=== PATIENT | female | born 1980 | race Caucasian/White ===

== ENCOUNTER → 2021-01-25 08:16 | Outpatient (CLI) | payer SELFPAY ==
[2016-12-27 14:49] VITALS: BMI 25.4
== END ==
PROVIDERS: Referring Provider Nurse Practitioner Women's Health; Visit Provider Nurse Practitioner Women's Health
DX: N91.2 Amenorrhea, unspecified (principal)
CPT/HCPCS: 36415; 84702

== ENCOUNTER → 2021-02-27 | Outpatient (CLI) | payer SELFPAY ==
[2021-03-05 19:29] LABS: HPV APTIMA, High Risk Negative (Negative)
== END | disposition home or self-care (01) ==
LOC: LABSPEC 17:02
PROVIDERS: Referring Provider Obstetrics & Gynecology; Visit Provider Obstetrics & Gynecology
DX: Z34.90 Encounter for supervision of normal pregnancy, unspecified, unspecified trimester (principal)
CPT/HCPCS: 87086; 87088; 87624; 88175; G0145

== ENCOUNTER → 2021-03-19 10:04 | Outpatient (CLI) | payer SELFPAY ==
[2021-03-19 10:51] LABS: Absolute Lymphocyte Count 1.41 X10^3/uL (0.83-4.51); Absolute Neutrophil Count 5.5 X10^3/uL (2.0-7.7); Basophil# 0.02 X10^3/uL; Basophil% 0.3 % (0-1); Eosinophil# 0.02 X10^3/uL; Eosinophils% 0.3 % (0-5); Hematocrit 32.6 % (37-47); Hemoglobin 10.8 g/dL (12.0-15.0); Lymphocyte # 1.41 X10^3/ul (0.83-4.51); Lymphocyte % 19.5 % (19-41); Mean Corp Hgb Conc 33.1 g/dL (32-36); Mean Corpuscular Hgb 31.6 pg (27.0-32.0); Mean Corpuscular Volume 95.3 fL (81-99); Mean Platelet Vol. 9.5 fl (6.2-12.0); Monocyte# 0.31 X10^3/uL; Monocyte% 4.3 % (0-10); NRBC Flagged by Analyzer 0 % (0-5); Neutrophil # 5.45 X10^3/uL (2.7-7.7); Neutrophil % 75.3 % (47-70); Platelet Count 461 K/mm3 (150-450); RBC Distribution Width SD 44.4 fl (35.1-43.9); Red Blood Count 3.42 M/mm3 (4.2-5.4); White Blood Count 7.2 K/mm3 (4.4-11.0)
[2021-03-19 11:06] LABS: Hemoglobin A1c 5.5 % (3.8-5.6)
[2021-03-19 11:28] LABS: Rubella IgG Reactive (Nonreactive)
== END ==
PROVIDERS: Referring Provider Obstetrics & Gynecology; Visit Provider Obstetrics & Gynecology
DX: O09.299 Supervision of pregnancy with other poor reproductive or obstetric history, unspecified trimester (principal); Z86.32 Personal history of gestational diabetes
CPT/HCPCS: 36415; 83036; 85025; 86762; 86850; 86900; 86901

== ENCOUNTER → 2021-04-28 08:58 | Outpatient (CLI) | payer SELFPAY ==
--- NOTE | 2021-04-28 09:01 | US_ITS ---
STUDY: SECOND AND THIRD TRIMESTER OBSTETRICAL ULTRASOUND REASON FOR EXAM: Female, 40 years old LMP: 12/09/2020. TECHNIQUE: Transabdominal and Transvaginal TECHNICAL QUALITY: Adequate. PRIOR ULTRASOUND: None. FINDINGS: There is a single intrauterine fetus. The fetus is in a cephalic presentation. There is demonstrated cardiac activity with a heart rate of 145 bpm. There is a normal amniotic fluid volume. The largest amniotic fluid pocket measures 4.9 cm x 3.6 cm. The amniotic fluid index (NUSRAT) is within normal limits. The placenta is anterior in location and is not low lying. There are Grade 1 placental changes. The cervix measures 3.6 cm in length. The bilateral adnexal regions are normal. BIOMETRY: BPD: 4.58 cm: 19 weeks, 5 days HC: 17.29 cm: 19 weeks, 5 days AC: 14.63 cm: 19 weeks, 6 days FL: 3.03 cm: 9 weeks, 2 days CI: 78% FL/BPD: 66% FL/HC: FL/AC: 21% HC/AC: 1.18 age by current US: 19 weeks, 4 days. MARU by current US: 09/18/2021. Estimated weight: 308 grams, +/- 46 grams, 30 %. Age by LMP: 20 weeks, 0 days. MARU by LMP: 09/15/2021. ANATOMY: Gender: Female Cranium: Normal lateral ventricles. Normal choroid plexus. Normal cerebellum. Normal cisterna magna. Normal face, nose and lips. Chest: Normal 4-chamber heart. Abdomen/Pelvis: Normal diaphragm. Normal stomach. Normal abdominal wall. Cord insertion is at 1.7 cm from the superior edge of the placenta. Normal 3 vessel cord. Normal kidneys. Normal bladder. Spine: Normal cervical spine. Normal thoracic spine. Normal lumbar spine. Normal sacrum. Extremities: Normal bilateral upper extremities. Normal bilateral lower extremities. IMPRESSION: Single live intrauterine gestation with a mean gestational age of 19 weeks and 4 days. The placental cord insertion is at 1.7 cm from the superior edge of the placenta. Electronically Signed: Tanvir Ryder MD at 12:55 EST , Service support , STUDY: FIRST TRIMESTER OBSTETRICAL ULTRASOUND REASON FOR EXAM: Female, 40 years old. Placental localization. LMP: 12/09/2020. TECHNIQUE: Transvaginal TECHNICAL QUALITY: Adequate. PRIOR ULTRASOUND: None. FINDINGS: The placenta lies along the anterior wall of the uterus. The placenta is not low-lying. US/OB Anatomy Scan IMPRESSION: The placenta and lies along the anterior aspect of the uterus. No low-lying placenta is seen. Electronically Signed: Tanvir Ryder MD at 12:56 EST , Service support ,
== END ==
PROVIDERS: Referring Provider Obstetrics & Gynecology; Visit Provider Obstetrics & Gynecology
DX: O09.92 Supervision of high risk pregnancy, unspecified, second trimester (principal); Z3A.19 19 weeks gestation of pregnancy
CPT/HCPCS: 76805; 76817

== ENCOUNTER 2021-07-18 09:55 | Outpatient (CLI) | payer MEDICAID, SELFPAY ==
[2021-07-18 10:14] LABS: Absolute Lymphocyte Count 1.19 X10^3/uL (0.83-4.51); Absolute Neutrophil Count 5.4 X10^3/uL (2.0-7.7); Basophil# 0.03 X10^3/uL; Basophil% 0.4 % (0-1); Eosinophil# 0.04 X10^3/uL; Eosinophils% 0.6 % (0-5); Hematocrit 31.5 % (37-47); Hemoglobin 10.3 g/dL (12.0-15.0); Lymphocyte # 1.19 X10^3/ul (0.83-4.51); Lymphocyte % 16.8 % (19-41); Mean Corp Hgb Conc 32.7 g/dL (32-36); Mean Corpuscular Hgb 30.8 pg (27.0-32.0); Mean Corpuscular Volume 94.3 fL (81-99); Mean Platelet Vol. 9.7 fl (6.2-12.0); Monocyte# 0.38 X10^3/uL; Monocyte% 5.4 % (0-10); NRBC Flagged by Analyzer 0 % (0-5); Neutrophil # 5.39 X10^3/uL (2.7-7.7); Neutrophil % 76.2 % (47-70); Platelet Count 465 K/mm3 (150-450); RBC Distribution Width CV 13.2 % (11.6-14.6); RBC Distribution Width SD 45.4 fl (35.1-43.9); Red Blood Count 3.34 M/mm3 (4.2-5.4); White Blood Count 7.1 K/mm3 (4.4-11.0)
== END 2021-07-18 23:59 | disposition short-term general hospital (02) ==
PROVIDERS: Referring Provider Obstetrics & Gynecology; Visit Provider Obstetrics & Gynecology
DX: O99.019 Anemia complicating pregnancy, unspecified trimester (principal); D64.9 Anemia, unspecified; Z3A.00 Weeks of gestation of pregnancy not specified
CPT/HCPCS: 36415; 85025

== ENCOUNTER 2021-08-22 08:16 | Outpatient (CLI) | payer MEDICAID, SELFPAY | END 2021-08-22 23:59 | disposition home or self-care (01) | LOC: LABSPEC 08-25 08:17 | PROVIDERS: Referring Provider Obstetrics & Gynecology; Visit Provider Obstetrics & Gynecology | DX: Z34.82 Encounter for supervision of other normal pregnancy, second trimester (principal); Z3A.33 33 weeks gestation of pregnancy | CPT/HCPCS: 87081 ==

== ENCOUNTER 2021-09-09 01:12 | Inpatient (IN) | payer MEDICAID, SELFPAY ==
[2021-09-09] VITALS (45 sets, daily range): BP systolic 100–151; BP diastolic 55–85; PULSE 76–245; RESP 14–18; TEMP 36.1–36.9; O2SAT 82–100; BMI 28.1
[2021-09-09] MEDS: Lactated Ringers 1,000 ML 999 ML IV ×2 (01:35→06:34)
[2021-09-09 02:10] LABS: Absolute Lymphocyte Count 1.01 X10^3/uL (0.83-4.51); Absolute Neutrophil Count 6.4 X10^3/uL (2.0-7.7); Basophil# 0.02 X10^3/uL; Basophil% 0.3 % (0-1); Eosinophil# 0.01 X10^3/uL; Eosinophils% 0.1 % (0-5); Hematocrit 30.4 % (37-47); Hemoglobin 10.1 g/dL (12.0-15.0); Lymphocyte # 1.01 X10^3/ul (0.83-4.51); Lymphocyte % 12.7 % (19-41); Mean Corp Hgb Conc 33.2 g/dL (32-36); Mean Corpuscular Hgb 31.6 pg (27.0-32.0); Mean Platelet Vol. 11.4 fl (6.2-12.0); Monocyte# 0.45 X10^3/uL; Monocyte% 5.6 % (0-10); NRBC Flagged by Analyzer 0 % (0-5); Neutrophil # 6.43 X10^3/uL (2.7-7.7); Neutrophil % 80.5 % (47-70); Platelet Count 428 K/mm3 (150-450); RBC Distribution Width CV 13.3 % (11.6-14.6); RBC Distribution Width SD 46.1 fl (35.1-43.9)
[2021-09-09] MEDS: Sodium Citrate/Citric Acid 30 ML UDC PO (02:10)
--- NOTE | 2021-09-09 03:30 | HP.PCM.OB_ITS ---
HPI - General General Date of Admission: 09/09/21 HPI Narrative ABDULKADIR HERNANDEZ, is a 41 F who presents IAL and SROM thick meconium wanting to proceed with RLTCS. Maternal Data Information MARU Calculator Estimated Delivery Date Method Current WG Current Estimate 09/15/21 LMP (Uncertain) 39w 1d [facility] Medical History (Updated 09/09/21 @ 03:[address] 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 Date Name GA/Weeks Outcome Route Bth Weight Infant Gen Labor Lgth Anesthesia Del Locatn Provider FOB 01/28/14 Ajith 39 live - full term 6lbs 8oz Male epidural [facility] [place] Marcel 12/27/16 Jerad 39 live - full term 7lbs Male e pidural [facility] Dr. Becky Rod Delivery Date: 01/28/14 CPD- baby was posterior; GDM Savanna Smith Delivery Date: 12/27/16 attempted home with Theresa Mars; FTD; gestational hypertension; acute hemorrhagic anemia with blood transfusion Savanna Smith Visit Details Expected Delivery Route/Plan RLTCS Labor Preferences- labor support person: Marcel labor intervention preferences: [] pain management options preferred: epidural if needed and able to cut cord/dad catch: [] : yes PP control planned: discussed discussed possible routes of delivery and associated risks: [] special requests: [] Plans Covid status: non immune, counseled regarding risk of covid in vs vaccination and declined vaccination Flu vaccine: declines Tdap vaccine: declines Rhogam: na LARC form signed: yes movement and labor precautions reviewed. Problem list reviewed and updated with the most current plan of care details and appropriate orders placed. Relevant counseling for the gestational age provided. Continue routine care and follow up unless otherwise noted in visit notes/problem list details OB Flowsheet Initial Weight: 140 lb Date -?-?-?-?-?-?-?-?-?-?-?-?- EGA Weight BP Urine Prot -?-?-?-?-?-?-?-?-?-?-?-?- Glucose FHR FuHt Pres Dilation -?-?-?-?-?-?-?-?-?-?-?-?- Effaced St Visit Note 02/27/21 -?-?-?-?-?-?-?-?-?-?-?-?- 11w 3d 140 lb (+0 oz) 130/92 -?-?-?-?-?-?-?-?-?-?-?-?- 170 -?-?-?-?-?-?-?-?-?-?-?-?- SM- CRL cons wit h LMP SM- CRL unable to be fully m easured- will need repeat US for dating plan fu visit 03/19/21 -?-?-?-?-?-?-?-?-?-?-?-?- 14w 2d 138 lb 2 oz (-1 lb 14 oz) 138/86 Negative -?-?-?-?-?-?-?-?-?-?-?-?- Negative 145 -?-?-?-?-?-?-?-?-?-?-?-?- SM- no vb arjun sanchez, will get SP limited labs done today, declines testing now but agrees to be done at delivery. 04/14/21 -?-?-?-?-?-?-?-?-?-?-?-?- 18w 0d 138 lb (-2 lb) 130/82 Negative -?-?-?-?-?-?-?-?-?-?-?-?- Negative -?-?-?-?-?-?-?-?-?-?-?-?- SM- labs reviewe d, feeling good. no vb cramping 05/12/21 -?-?-?-?-?-?-?-?-?-?-?-?- 22w 0d 141 lb 2 oz (+1 lb 2 oz) 130/88 Negative -?-?-?-?-?-?-?-?-?-?-?-?- Negative 147 -?-?-?-?-?-?-?-?-?-?-?-?- JV- no lof, vagi nal bleeding, or cramping. cord insertion 1.7cm from edge of placenta. (anterior) less than 10% chance of success for . pt wants to do glucose monitoring over the GCT. test strips given. 06/10/21 -?-?-?-?-?-?-?-?-?-?-?-?- 26w 1d 140 lb (+0 oz) 126/72 Negative -?-?-?-?-?-?-?-?-?-?-?-?- Negative 141 26 -?-?-?-?-?-?-?-?-?-?-?-?- MH- No VB, lof. Good FM. Will check BS qid X 1 week and report. CBC today. Larc. Declines TDAP 07/18/21 -?-?-?-?-?-?-?-?-?-?-?-?- 31w 4d 146 lb 6 oz (+6 lb 6 oz) 120/88 Negative -?-?-?-?-?-?-?-?-?-?-?-?- Negative 145 31 -?-?-?-?-?-?-?-?-?-?-?-?- JV- no lof, vagi nal bleeding, or dec fm. fasting and 2 hr pp levels were done and she had 2 abnormal levels. continue checking fasting levels. plan for 39 week rpt section 08/01/21 -?-?-?-?-?-?-?-?-?-?-?-?- 33w 4d 147 lb (+7 lb) 110/80 Negative -?-?-?-?-?-?-?-?-?-?-?-?- Negative 145 33 -?-?-?-?-?-?-?-?-?-?-?-?- SM- no vb lof go od fm no regualr ctx 08/22/21 -?-?-?-?-?-?-?-?-?-?-?-?- 36w 4d 147 lb 4 oz (+7 lb 4 oz) 134/82 Negative -?-?-?-?-?-?-?-?-?-?-?-?- Negative 144 35 -?-?-?-?-?-?-?-?-?-?-?-?- JV- gbs collecte d, declined vag exam. no lof, vaginal bleeding, or dec m 08/29/21 -?-?-?-?-?-?-?-?-?-?-?-?- 37w 4d 148 lb (+8 lb) 132/86 Negative -?-?-?-?-?-?-?-?-?-?-?-?- Negative 145 37 -?-?-?-?-?-?-?-?-?-?-?-?- Sm- no vb lof go od fm no regular ctx 09/05/21 -?-?-?-?-?-?-?-?-?-?-?-?- 38w 4d 148 lb (+8 lb) 110/70 Negative -?-?-?-?-?-?-?-?-?-?-?-?- Negative 140 37 -?-?-?-?-?-?-?-?-?-?-?-?- SM- no vb lof go od fm no regular ctx 09/09/21 -?-?-?-?-?-?-?-?-?-?-?-?- 39w 1d 144 lb (+4 lb) 151/84 141/85 141/85 -?-?-?-?-?-?-?-?-?-?-?-?- -?-?-?-?-?-?-?-?-?-?-?-?- NST FHR Rate Baby A Baseline: 140 Variability:: Moderate Accelerations:: 15 x 15 Decelerations:: None NST Reactive:: Yes FHR Category:: Category I Uterine Activity:: q3-5 ROS Constitutional Constitutional: Reports systems reviewed and no addt'l complaints, except as documented ENT HEENT: Reports systems reviewed and no addt'l complaints, except as documented Cardiovascular Cardiovascular: Reports systems reviewed and no addt'l complaints, except as documented Respiratory/Chest Respiratory/Chest: Reports systems reviewed and no addt'l complaints, except as documented Gastrointestinal Gastrointestinal: Reports systems reviewed and no addt'l complaints, except as documented and nausea; Denies abdominal pain Genitourinary Genitourinary: Reports systems reviewed and no addt'l complaints, except as documented, contractions Details: present and frequency (regular ) and movement Details: present Musculoskeletal Musculoskeletal: Reports systems reviewed and no addt'l complaints, except as documented Integumentary Integumentary: Reports as per HPI Neurologic Neurologic: Reports systems reviewed and no addt'l complaints, except as documented Endocrine Endocrinology: Reports systems reviewed and no addt'l complaints, except as documented Vital Signs Vital Signs Vital Signs: 09/09/21 01:03 09/09/21 01:07 09/09/21 01:13 Temperature Temperature Source Pulse Rate 89 90 89 Respiratory Rate Blood Pressure 151/84 H Blood Pressure Mean BP Systolic 151 BP Diastolic 84 Blood Pressure Source Blood Pressure Position Blood Pressure Location Pulse Ox 97 97 Oxygen Delivery Method 09/09/21 01:19 09/09/21 01:24 09/09/21 01:29 Temperature Temperature Source Pulse Rate 102 H 80 99 Respiratory Rate Blood Pressure Blood Pressure Mean BP Systolic BP Diastolic Blood Pressure Source Blood Pressure Position Blood Pressure Location Pulse Ox 97 99 100 Oxygen Delivery Method 09/09/21 01:34 09/09/21 01:39 09/09/21 01:41 Temperature 98.5 F Temperature Source Temporal Pulse Rate 100 88 84 Respiratory Rate 18 Blood Pressure 141/85 H Blood Pressure Mean 103 BP Systolic BP Diastolic Blood Pressure Source Monitor Blood Pressure Position Supine Blood Pressure Location Left Arm Pulse Ox 99 100 99 Oxygen Delivery Method Room Air 09/09/21 01:43 09/09/21 01:44 Temperature Temperature Source Pulse Rate 95 90 Respiratory Rate Blood Pressure 141/85 H Blood Pressure Mean BP Systolic 141 BP Diastolic 85 Blood Pressure Source Blood Pressure Position Blood Pressure Location Pulse Ox 97 Oxygen Delivery Method Weight Weight: 144 lb Body Mass Index (BMI) 28.1 Physical Exam Const alert, oriented x3 and healthy appearing Constitutional Narrative: uncomfortable with contractions HEENT normocephalic and moist oral mucous membranes Head and Scalp: atraumatic Neck full ROM, no lymphadenopathy, supple and thyroid normal General: trachea midline Thyroid: thyroid normal Lymph Lymphatic: no lymphadenopathy noted Chest inspection of chest normal Resp normal respiratory effort Cardio regular rate GI normal to inspection, nondistended, normoactive bowel sounds, soft to palpation and non-tender Inspection: gravid external exam normal Bimanual Exam - Vag & Uterus: uterus non-tender Manual OB Exam: estimated gestational size appropriate, presentation cephalic, dilated, effaced and station Extremity normal to inspection General Extremity: Negative for edema Skin no rashes or lesions noted Neuro deep tendon reflexes 2+ bilaterally Motor Exam: strength 5/5 throughout and clonus absent Psych mental status grossly normal Labs Labs Labs: Blood Type O POSITIVE Antibody Screen NEGATIVE Hct 30.4 % (37-47) L Hgb 10.1 g/dL (12.0-15.0) L Pap Smear Negative Obstetrics US Syphilis Total Ab Pending Rubella IgG Antibody Reactive (Nonreactive) Hep Bs Antigen Negative (Negative) HIV 1&2 Antibody Pending Group B Strep DNA Negative (Negative) Rhogam given: No Assessment & Plan (1) Cleft palate: COMMENT: surgical corrected as a child (2) H/O section: COMMENT: RLTCS scheduled with 09/09/21 @ 12. 2 previous csections for CPD, discussed less than 10% chance of success, high morbidity if failed TOLAC, recommend RLTCS (3) AMA (advanced maternal age) multigravida 35+: COMMENT: discussed genetic screening options, plan growth US 36 weeks (4) Anemia affecting : COMMENT: iron added (5) Supervision of high risk , antepartum: COMMENT: PRR (SP) MARU:09/15/21 surprise PC: Jerad Canseco Spouse: Marcel (6) H/O depression, currently : COMMENT: states that she had her placenta encapsulated and that helped with her depression- she may do that again. Stable (7) : QUALIFIERS: Weeks of gestation: 38 weeks Qualified Code(s): Z3A.38 - 38 weeks gestation of COMMENT: declines genetic, carrier and NTD; PT declined std and tox screen labs, agrees to have done at delivery. GBS neg (8) H/O gestational diabetes in prior , currently : COMMENT: 2013- patient declines glucose, has been checking blood sugars f or a month and almost all WNL. discussed periodic checking. (9) Active labor at term: COMMENT: proceed with RLTCS
--- NOTE | 2021-09-09 03:36 | OP.PCM_ITS ---
Assessment & Plan (1) Active labor at term: COMMENT: proceed with RLTCS (2) H/O gestational diabetes in prior , currently : COMMENT: 2013- patient declines glucose, has been checking blood sugars for a month and almost all WNL. discussed periodic checking. (3) : QUALIFIERS: Weeks of gestation: 38 weeks Qualified Code(s): Z3A.38 - 38 weeks gestation of COMMENT: declines genetic, carrier and NTD; PT declined std and tox screen labs, agrees to have done at delivery. GBS neg (4) H/O depression, currently : COMMENT: states that she had her placenta encapsulated and that helped with her depression- she may do that again. Stable (5) Supervision of high risk , antepartum: COMMENT: PRR (SP) MARU:09/15/21 surprise PC: Jerad Canseco Spouse: Marcel (6) Anemia affecting : COMMENT: iron added (7) AMA (advanced maternal age) multigravida 35+: COMMENT: discussed genetic screening options, plan growth US 36 weeks (8) H/O section: COMMENT: RLTCS scheduled with 09/09/21 @ 12. 2 previous csections for CPD, discussed less than 10% chance of success, high morbidity if failed TOLAC, recommend RLTCS (9) Cleft palate: COMMENT: surgical corrected as a child (10) delivery delivered: COMMENT: 39 RLTCS girl thin lower uterine segment IAL mec Maternal Data Information MARU Calculator Estimated Delivery Date Method Current WG Current Estimate 09/15/21 LMP (Uncertain) 39w 1d Final MARU Source: LMP Gestational age: 39 Details Operative Information Date of Procedure: 09/09/21 Pre-Operative Diagnosis: ial previous cs x 2 h/o CPD Post-Operative Diagnosis: same Indications for : Suspected cephalopelvic disproportion Classification: CÉSAR Procedure Type: low transverse construction scheduler #1: Cary Carreon Type of Anesthesia: Spinal Special Medications: valentín Antibiotic Given: Ancef 2 grams IV x1 and Zithromax 500 mg/5 mL X1 Drain: Guido to straight drain Estimated Blood Loss: 800 Fluids Replaced: crystalloid Findings Description of Procedure: The patient was placed in the dorsal supine position with leftward tilt. Patient was prepped and draped in the normal sterile fashion. Pfannenstiel skin incision was made with the scalpel and carried through to the underlying layer of fascia with the scalpel. Fascia was nicked in the midline and the incision extended laterally. The rectus bellies were dissected off superiorly and inferiorly with out complication both sharply and bluntly. The peritoneum was entered digitally. The incision was stretched and the uterus visualized and the lower uterine segment noted to be very thin but intact. A low transverse uterine incision was made with the scalpel. The infant's head was delivered atraumatically followed by the anterior and posterior shoulders without complication the rest of the delivered. The cord was clamped and cut and the infant was handed off to awaiting nurse. The placenta was delivered spontaneously immediately following and was noted to be intact and have a three- vessel cord. The uterus was exteriorized cleared of all clots and debris, and the incision was closed in a double layer closure using #1 Monocryl. There is an extension cervically down the midline and to the left lower uterine segment which was reinforced with 2-0 Vicryl. The ureter was traced down along the left pelvic sidewall and noted to be inferior lateral to where the stitches were placed. The ovaries and fallopian tubes were noted to be within normal limits. The uterus was returned to the maternal abdomen and gutters were cleared of all clots and debris. The peritoneum was closed with 3-0 Monocryl in a running fashion. Gloves were changed prior to fascial closure. Fascia was closed with 0 PDS in a running fashion. Subcutaneous tissue was copiously irrigated and the skin was closed with 3-0 Monocryl in a subcuticular fashion. Mepilex dressing was applied without complication. Patient was taken to recovery in stable condition. It was discussed with the patient that based on the clinical information obtained during this encounter, combined with her history, at this time I would recommend cesareans for future deliveries if further pregnancies are desired. Amniotic Membrane Rupture Type: Spontaneous Amniotic Fluid Description: Thick meconium Placental Delivery Description: Spontaneous Placenta Disposition: [facility] Cord Vessel Description: 3 Vessels Cord Entanglement: None Delayed Cord Clamping: Yes Complications Risks of Surgery Discussed w/Patient: Bleeding, Infection, Need for Future C- Sections and Injury to surrounding structure(s) including bowel and bladder Complications: none Admit VTE Documentation VTE Present on Admission: No VTE Mechan Device Prophylaxis: SCD's Procedures Urinary/Genital [id number]: [id number] Delivery global pkg
--- NOTE | 2021-09-09 03:41 | PCM.DC ---
Discharge Instructions Diet Discharge Diet: No restrictions Activity Discharge Activity: May Not Drive (for 2 weeks or while taking narcotic pain medications.), May Shower and May Take a Tub Bath (in 7 days) May shower in (days): 0 May resume sexual activity in: 4-6 weeks Weight Bearing Status: Full weight bearing Dressing / Incision Call your doctor if your incision/area has: Continuous Slow Oozing, Sudden Increased Bleeding, Increased Pain/ Swelling, Increased Redness and Foul Smelling Discharge Call your doctor if you observe: Fever of 101 or Higher and Using more than 1 pad per hour (for 2 hours) Suture Line Care: Avoid Pulling/Pushing and Avoid Pinching/Bending Cleanse incision/area with: Soap & Water and Keep Dressing Clean & Dry Follow Up Care Please Follow Up With: Maddie Salinas MD When: Call [phone] to make an appointment for an incision check in 1-2 weeks. Test Results: Test results from this visit will be discussed in further detail at your follow-up appointment, if applicable. Discharge Plan Admission Admit Date/Time: 09/09/21 01:12 Attending Provider: Maddie Salinas Primary Care Provider: Care PhysicianYasmin Primary Discharge Orders/Prescriptions Prescriptions: New oxycodone-acetaminophen [Percocet] 5-325 mg tablet 1 tab PO Q6H PRN (Reason: pain) 7 Days Qty: 20 RF: 0 naproxen [naproxen] 500 MG tablet 500 mg PO BID PRN PRN (Reason: Pain) Qty: 30 RF: 1 Continued Vitamin 1 EACH tablet 1 tab PO DAILY RF: 0 No Action (DME) Accutrend Glucose test strips Strip See Rx Instructions .ROUTE .MEDSUPPLY Qty: 50 RF: 6 Referrals / Follow Up: Care PhysicianYasmin Primary [Primary Care Provider] - Disposition Disposition (needs filled in before D/C Order can be placed): Home, Self Care
[2021-09-09] MEDS: Oxytocin 30 units/NS 500 ml 30 UNITS/500 ML IV.SOLN 167 UNITS IV (04:14)
[2021-09-09] MEDS: Acetaminophen 500 MG Tablet 1000 MG PO ×4 (04:20→23:48)
[2021-09-09] MEDS: Ketorolac 30 MG/ML Syringe IV ×4 (04:21→23:48)
[2021-09-09 04:23] LABS: HIV - WCH Non-Reactive (Nonreactive); Hepatitis B Surface Antibody Reactive; Hepatitis C Antibody Non-Reactive (Nonreactive); Syphilis Antibodies Non-reactive
[2021-09-09 05:37] LABS: Chlamydia Trachomatis by PCR Negative (Negative); Neisserai gonorrhoeae by PCR Negative (Negative); Probe Check PASS; Sample Adequacy Control PASS; Specimen Processing Control PASS
[2021-09-09] MEDS: Lactated Ringers 1,000 ML 100 ML IV (08:19)
[2021-09-09] MEDS: Senna/Docusate Sodium 1 Tablet PO (11:09)
[2021-09-09] MEDS: Prenatal Vits Tablet 1 TABLET PO (11:44)
[2021-09-09 13:18] LABS: Hemoglobin 7.6 g/dL (12.0-15.0); Mean Corpuscular Hgb 31.7 pg (27.0-32.0); Mean Corpuscular Volume 95.8 fL (81-99); Mean Platelet Vol. 10.7 fl (6.2-12.0); Platelet Count 313 K/mm3 (150-450); RBC Distribution Width CV 13.4 % (11.6-14.6); RBC Distribution Width SD 46.5 fl (35.1-43.9)
[2021-09-09 13:38] LABS: Anion Gap 6 (5-15); BUN 12 mg/dL (7-18); BUN/Creat Ratio 12.1 RATIO (10-20); Chloride 106 mmol/L (98-107); Creatinine, Serum 0.99 mg/dL (0.55-1.02); EST Glomerular Filtration Rate 66 mL/min (>60); Est Glom Filt Rate - Afr Amer 80 mL/min (>60); Estimated Creatinine Clearance 54.26 ml/min; Glucose 116 mg/dL (74-106); Potassium 4.1 mmol/L (3.5-5.1); Sodium Level 136 mmol/L (136-145)
[2021-09-09] MEDS: 0.9% Saline Lock 10 ML Syringe IV ×2 (17:56→23:48)
--- NOTE | 2021-09-09 23:45 | NURSING ---
NYA terry who gave this RN report earlier stated fundus has been off to the right of midline. dr cooley aware. fundus firm, no excessive bleeding noted.
[2021-09-10] VITALS (9 sets, daily range): BP systolic 129–141; BP diastolic 72–76; PULSE 74–90; RESP 14–16; TEMP 36.6–37.3; O2SAT 98–100
[2021-09-10 03:11] LABS: Bedside Glucose 96 mg/dL (74-106)
[2021-09-10] MEDS: Naproxen 500 MG Tablet PO ×2 (03:58→13:13)
[2021-09-10 04:16] LABS: Hematocrit 22.4 % (37-47); Hemoglobin 7.3 g/dL (12.0-15.0); Mean Corp Hgb Conc 32.6 g/dL (32-36); Mean Corpuscular Hgb 31.7 pg (27.0-32.0); Mean Corpuscular Volume 97.4 fL (81-99); Mean Platelet Vol. 10.7 fl (6.2-12.0); Platelet Count 334 K/mm3 (150-450); RBC Distribution Width SD 49.1 fl (35.1-43.9); White Blood Count 8.7 K/mm3 (4.4-11.0)
[2021-09-10] MEDS: Acetaminophen 500 MG Tablet 1000 MG PO ×2 (06:11→13:13)
--- NOTE | 2021-09-10 07:51 | PCM.PN.OB ---
Subjective Subjective Patient doing well without complaints. Tolerating PO. Ambulating and voiding without difficulty. Feeding well. Denies chest pain, shortness of breath, calf pain/swelling, fevers, chills, lightheadedness. Objective Data Objective Data Vital Signs: Vital Signs Temp Pulse Resp BP Pulse Ox 97.8 F 74 16 135/76 H 99 09/10/21 04:00 09/10/21 04:00 09/10/21 04:00 09/10/21 04:00 09/10/21 04:00 Oxygen Delivery Method Room Air Weight: 144 lb Body Mass Index (BMI) 28.1 Intake & Output: Intake and Output for Last 24 Hours 09/08/21 09/09/21 09/10/21 23:59 23:59 23:59 Intake Total 3315.33 / 3315.33 Output Total 950 / 950 1200 / 1200 Balance 2365.33 / 2365.33 -1200 / -1200 Lab / Micro Data Result Diagrams: 09/10/21 04:05 09/09/21 13:00 Labs: Laboratory Results - last 24 hr 09/09/21 08:24: POC Glucose 96 09/09/21 13:00: WBC 11.0, RBC 2.40 L, Hgb 7.6 L, Hct 23.0 L, MCV 95.8, MCH 31.7, MCHC 33.0, RDW Std Deviation 46.5 H, RDW Coeff of Radha 13.4, Plt Count 313, MPV 10.7 09/09/21 13:00: Sodium 136, Potassium 4.1, Chloride 106, Carbon Dioxide 24.0, Anion Gap 6, BUN 12, Creatinine 0.99, Estim Creat Clear Calc 54.26, Est GFR (MDRD) Af Amer 80, Est GFR (MDRD) Non-Af 66, BUN/Creatinine Ratio 12.1, Glucose 116 H, Calcium 8.0 L 09/10/21 04:05: WBC 8.7, RBC 2.30 L, Hgb 7.3 L, Hct 22.4 L, MCV 97.4, MCH 31.7, MCHC 32.6, RDW Std Deviation 49.1 H, RDW Coeff of Radha 14.0, Plt Count 334, MPV 10.7 Micro: Microbiology 09/09/21 01:45 Nasal Secretion SARS-CoV-2 Antigen (Rapid) - Final Physical Exam Const alert and oriented x3 HEENT normocephalic Eyes PERRL Neck full ROM Resp normal respiratory effort GI soft to palpation GI Narrative: FF below U. Dressing dry and intact Palpation: tender other (appropriately) Assessment & Plan (1) delivery delivered: COMMENT: SM 39 RLTCS girl thin lower uterine segment IAL mec (2) Anemia: QUALIFIERS: Anemia type: unspecified type Qualified Code(s): D64.9 - Anemia, unspecified PLAN: s/p LTCS PPD # 1 1. routine post care 2. breast feeding- support given 3. rh positive 4. rubella immune 5. mood stable 6. enc Fe daily 7. home today
[2021-09-10] MEDS: Prenatal Vits Tablet 1 TABLET PO (10:37)
[2021-09-10] MEDS: Senna/Docusate Sodium 1 Tablet PO (10:37)
== END 2021-09-10 13:45 | disposition home or self-care (01) | DRG 788 ==
LOC: WPOUT 01:14 → WP 01:14
PROVIDERS: Admitting Provider Obstetrics & Gynecology; Visit Provider Obstetrics & Gynecology
DX: O34.211 Maternal care for low transverse scar from previous cesarean delivery (principal); O33.9 Maternal care for disproportion, unspecified; O77.0 Labor and delivery complicated by meconium in amniotic fluid; O99.02 Anemia complicating childbirth; Z20.822 Contact with and (suspected) exposure to COVID-19; Z86.32 Personal history of gestational diabetes; Z3A.38 38 weeks gestation of pregnancy; Z37.0 Single live birth
CPT/HCPCS: 59025; 59050; 80048; 82962; 85025; 85027; 86703; 86706; 86780; 86803; 86850; 86900; 86901; 87426; 87491; 87591; 99218; J7120; A4216; G0378; J2405

== ENCOUNTER 2021-09-09 10:18 | Outpatient (CLI) | payer MEDICAID, SELFPAY ==
[2021-09-09 02:04] LABS: Absolute Neutrophil Count 6.4 X10^3/uL (2.0-7.7); Basophil# 0.02 X10^3/uL; Basophil% 0.3 % (0-1); Eosinophil# 0.02 X10^3/uL; Eosinophils% 0.3 % (0-5); Hematocrit 30.2 % (37-47); Lymphocyte % 12.6 % (19-41); Mean Corp Hgb Conc 33.1 g/dL (32-36); Mean Corpuscular Hgb 31.3 pg (27.0-32.0); Mean Corpuscular Volume 94.7 fL (81-99); Mean Platelet Vol. 11.4 fl (6.2-12.0); NRBC Flagged by Analyzer 0 % (0-5); Neutrophil # 6.44 X10^3/uL (2.7-7.7); Neutrophil % 80.9 % (47-70); Platelet Count 422 K/mm3 (150-450); RBC Distribution Width CV 13.3 % (11.6-14.6); RBC Distribution Width SD 45.8 fl (35.1-43.9); Red Blood Count 3.19 M/mm3 (4.2-5.4)
== END 2021-09-09 23:59 | disposition home or self-care (01) ==
LOC: LAB 09-24 10:19
PROVIDERS: Visit Provider Obstetrics & Gynecology
DX: D64.9 Anemia, unspecified (principal)
CPT/HCPCS: 85025; 86850; 86900; 86901